=== PATIENT | male | born 1975 | race Caucasian/White ===

== ENCOUNTER 2016-08-24 09:14 | Emergency (ER) ==
[2016-08-24 09:18] VITALS: BP 130/89; TEMP 98.8; BMI 27.3
--- NOTE | 2016-08-24 09:42 | ED.PDOC ---
General ED Provider: Dr. MALATHI JOSHI JR Chief Complaint: Foot Pain/Injury Stated Complaint: HIT LEFT FOOT GOING THROUGH DOOR LAST NIGHT. PAIN TO BASE OF LEFT GREAT TOE [ End ]98.8 113 18 98% 130/89 4/10 was wearing socks pain immediate noted discoloration later unable to tolerate exam no definite bruising. , extra bone in left ankle removed asth migr. smok Time Seen by Physician: 09:41 Mode of Arrival: Walk-In Information Source: Patient Exam Limitations: No limitations Nursing and Triage Documentation Reviewed and Agree: No Review of Systems - Review Of Systems Constitutional: Reports: No symptoms Eyes: Reports: No symptoms Ears, Nose, Mouth, Throat: Reports: No symptoms Respiratory: Reports: No symptoms Cardiac: Reports: No symptoms GI: Reports: No symptoms : Reports: No symptoms Musculoskeletal: Reports: Joint pain Skin: Reports: Change in color. Denies: Bruising Neurological: Reports: No symptoms Endocrine: Reports: No symptoms Hematologic/Lymphatic: Reports: No symptoms All Other Systems: Other Past Medical History - Past Medical History Previously Healthy: No Endocrine: Reports: None Cardiovascular: Reports: None Respiratory: Reports: None Hematological: Reports: None Gastrointestinal: Reports: None Genitourinary: Reports: None Neuro/Psych: Reports: None Musculoskeletal: Reports: Joint Pain Cancer: Reports: None - Surgical History General Surgical History: Reports: Tonsillectomy - Family History Family History: Reports: None - Social History Smoking Status: Current every day smoker, Heavy tobacco smoker Hx Substance Use: No Alcohol Screening: Occasionally Physical Exam - Physical Exam Appearance: Well-appearing, No pain distress, Well-nourished Pain Distress: Moderate Neck: Supple Respiratory: Airway patent Musculoskeletal: Normal strength, ROM intact, No edema, No calf tenderness ( unable to tolerate exam) Skin: Warm, Dry, Cyanotic Neurological: Sensation intact, Motor intact, Reflexes intact, Cranial nerves intact, Alert, Oriented Psychiatric: Affect appropriate, Mood appropriate Critical Care Note - Critical Care Note Total Time (mins): 0 Course - Course Orders, Labs, Meds: Orders Category Date Time Status TOE(S), LEFT MIN 2V Stat RADS 08/24/16 09:41 Completed Vital Signs: Temp Pulse Resp BP Pulse Ox 08/24/16 09:14 98.8 F 113 H 18 130/89 98 Departure - Departure Time of Disposition: 10:36 Disposition: HOME SELF-CARE Discharge Problem: Injury of foot Instructions: Foot Contusion (ED) Condition: Good Pt referred to PMD for follow-up: Yes Additional Instructions: ice 20 minutes three times a day elevate foot 1-2 hours twice a day Naprosyn or Aleve for pain take with food limit weight on foot for three days Allergies/Adverse Reactions: Allergies codeine Adverse Reaction (Verified 08/24/16 09:18) Home Medications: Ambulatory Orders 1 [No Reported Medications] 03/05/15
--- NOTE | 2016-08-24 10:22 | DI ---
EXAM: Left great toe three views HISTORY: Injury, pain FINDINGS: Bone and joint structures appear normal. There is no displaced fracture or joint disloca tion seen. General bone density and soft tissues are within normal limits. IMPRESSION: No acute fracture identified.
== END 2016-08-24 10:54 | disposition home or self-care (01) ==
LOC: EDSEX → EDBD → ED 09:14 → MERGE 09:14 → ED 10:54
DX: S90.32XA Contusion of left foot, initial encounter (principal); W22.8XXA Striking against or struck by other objects, initial encounter; F17.210 Nicotine dependence, cigarettes, uncomplicated
CPT/HCPCS: 99282

== ENCOUNTER 2017-06-08 18:20 | Emergency (ER) | payer OTHER ==
[2017-06-08 18:26] VITALS: BP 143/96; TEMP 100.8; BMI 27.1
--- NOTE | 2017-06-08 18:30 | ED.PDOC ---
General ED Provider: Dr. KIMMIE LORENZO Chief Complaint: Cough Stated Complaint: COUGH Time Seen by Physician: 18:20 (SEEN WITH ROSITA HYDE ) Mode of Arrival: Walk-In Information Source: Patient Exam Limitations: No limitations Nursing and Triage Documentation Reviewed and Agree: Yes Reviewed sepsis parameters & appropriate labs ordered?: Yes System Inflammatory Response Syndrome: Not Applicable Sepsis Protocol: For patient's 13 years and over: Temp is 96.8 and below OR 101 and greater Pulse >90 BPM Resp >20/minute Acutely Altered Mental Status Are patient's symptoms suggestive of a new infection, such as: -Pneumonia -Skin, Soft Tissue -Endocarditis -UTI -Bone, Joint Infection -Implantable Device -Acute Abdominal Infection -Wound Infection -Meningitis -Blood Stream Catheter Infection -Unknown System Inflammatory Response Syndrome: Not Applicable Respiratory Complaint Exam - Respiratory Complaint/Exam Onset/Duration: 2 DAYS Symptoms Are: Still present Timing: Intermittent Initial Severity: Mild Current Severity: Mild Location: Throat, Chest Character: Reports: Non-productive cough, Dry cough Aggravating: Reports: None Alleviating: Reports: None Associated Signs and Symptoms: Reports: URI, Nasal congestion. Denies: Rapid breathing, Dyspnea, Fever, Chills, Chest pain, Pleuritic chest pain, Wheezing, Hemoptysis, Dizziness, Calf pain, Calf swelling, Edema, Hoarseness, Sinus discomfort, Vomiting, Sore throat, Weight loss, Decreased oral intake, Increased thirst, Increased appetite, Increased urination History of Healthcare-Acquired Pneumonia: No Related Surgical History: Reports: None Pulmonary Embolism Risk Factors: None Cardiac Risk Factors: Reports: None Pseudomonas Risk Factors: Reports: None Tuberculosis Risk Factors: Reports: None Status Asthmaticus Risk Factors: Reports: None Home Oxygen Use: No Recent Stress Test: No Recent Echo/LV Function: No Current Antibiotic Use: No Current Asthma Medication Use: No Respiratory Distress: None Inadequate Respiratory Effort: No Dysphagia Present: No Stridor Present: No JVD Present: No Accessory Muscle Use: No Retractions: Not Present Grunting Respirations: No Kussmaul Respirations: No Differential Diagnoses: Bronchitis, Influenza Review of Systems - Review Of Systems Constitutional: Reports: No symptoms Eyes: Reports: No symptoms Ears, Nose, Mouth, Throat: Reports: No symptoms Respiratory: Reports: Cough Cardiac: Reports: No symptoms GI: Reports: No symptoms : Reports: No symptoms Musculoskeletal: Reports: No symptoms Skin: Reports: No symptoms Neurological: Reports: No symptoms Endocrine: Reports: No symptoms Hematologic/Lymphatic: Reports: No symptoms All Other Systems: Reviewed and Negative Past Medical History - Past Medical History Previously Healthy: No Endocrine: Reports: None Cardiovascular: Reports: None Respiratory: Reports: None Hematological: Reports: None Gastrointestinal: Reports: None Genitourinary: Reports: None Neuro/Psych: Reports: None Musculoskeletal: Reports: Joint Pain Cancer: Reports: None Last Menstrual Period: may 17 - Surgical History General Surgical History: Reports: None - Family History Family History: Reports: None - Social History Smoking Status: Heavy tobacco smoker, Current every day smoker Hx Substance Use: No Alcohol Screening: Occasionally Physical Exam - Physical Exam Appearance: Well-appearing, No pain distress, Well-nourished Eyes: FREDERIC, EOMI, Conjunctiva clear ENT: Ears normal, Nose normal, Oropharynx normal Respiratory: Airway patent, Breath sounds clear, Breath sounds equal, Respirations nonlabored Cardiovascular: RRR, Pulses normal, No rub, No murmur GI/: Soft, Nontender, No masses, Bowel sounds normal, No Organomegaly Musculoskeletal: Normal strength, ROM intact, No edema, No calf tenderness Skin: Warm, Dry, Normal color Neurological: Sensation intact, Motor intact, Reflexes intact, Cranial nerves intact, Alert, Oriented Psychiatric: Affect appropriate, Mood appropriate Critical Care Note - Critical Care Note Total Time (mins): 0 Course - Course Vital Signs: Temp Pulse Resp BP Pulse Ox 06/08/17 18:20 100.8 F H 101 H 20 143/96 H 98 Departure - Departure Time of Disposition: 19:00 Disposition: HOME SELF-CARE Discharge Problem: Cough, Viral syndrome Acute bronchitis Qualifiers: Bronchitis organism: unspecified organism Qualified Code(s): J20.9 - Acute bronchitis, unspecified Instructions: Acute Bronchitis (ED) Condition: Good Pt referred to PMD for follow-up: Yes IPMP verified?: No Additional Instructions: Please call your Family Physician as soon as possible to schedule a follow-up appointment. Allergies/Adverse Reactions: Allergies codeine Adverse Reaction (Verified 06/08/17 18:28) Home Medications: Ambulatory Orders 1 [No Reported Medications] 03/05/15
== END 2017-06-08 18:43 | disposition home or self-care (01) ==
LOC: ED 18:20
DX: J20.9 Acute bronchitis, unspecified (principal); B34.9 Viral infection, unspecified
CPT/HCPCS: 99282

== ENCOUNTER 2018-01-20 21:27 | Emergency (ER) ==
[2018-01-20 21:34] VITALS: BP 137/91; TEMP 97.2; BMI 25.5
--- NOTE | 2018-01-20 21:53 | ED.PDOC ---
General ED Provider: Dr. KHUSHBU ORTEGA-ER Chief Complaint: Cough Stated Complaint: i get this every year--i have sinus congestion with cough and wheezing--no sob or wheezing or hemoptysis Time Seen by Physician: 21:51 Mode of Arrival: Walk-In Information Source: Patient Exam Limitations: No limitations Nursing and Triage Documentation Reviewed and Agree: Yes Does patient meet sepsis criteria?: No System Inflammatory Response Syndrome: Not Applicable Sepsis Protocol: For patient's 13 years and over: Temp is 96.8 and below OR 101 and greater Pulse >90 BPM Resp >20/minute Acutely Altered Mental Status Are patient's symptoms suggestive of a new infection, such as: -Pneumonia -Skin, Soft Tissue -Endocarditis -UTI -Bone, Joint Infection -Implantable Device -Acute Abdominal Infection -Wound Infection -Meningitis -Blood Stream Catheter Infection -Unknown Respiratory Complaint Exam - Respiratory Complaint/Exam Onset/Duration: 3 days Symptoms Are: Still present Initial Severity: Mild Current Severity: Moderate Location: Nose, Chest Character: Reports: Productive cough Aggravating: Reports: URI, Passive smoke exposure Associated Signs and Symptoms: Reports: Wheezing, URI, Nasal congestion, Sinus discomfort. Denies: Rapid breathing, Dyspnea, Fever, Chills, Chest pain, Pleuritic chest pain, Hemoptysis, Dizziness, Calf pain, Edema History of Healthcare-Acquired Pneumonia: No Home Oxygen Use: No Recent Stress Test: No Recent Echo/LV Function: No Current Antibiotic Use: No Current Asthma Medication Use: No Respiratory Distress: None Inadequate Respiratory Effort: No Dysphagia Present: No Stridor Present: No JVD Present: No Accessory Muscle Use: No Retractions: Not Present Diminished Breath Sounds: No Sinus Tenderness: None Grunting Respirations: No Kussmaul Respirations: No Differential Diagnoses: Asthma, Bronchitis, URI Review of Systems - Review Of Systems Constitutional: Reports: No symptoms Eyes: Reports: No symptoms Ears, Nose, Mouth, Throat: Reports: Nose discharge Respiratory: Reports: Cough Cardiac: Reports: No symptoms GI: Reports: No symptoms : Reports: No symptoms Musculoskeletal: Reports: No symptoms Skin: Reports: No symptoms Neurological: Reports: No symptoms Endocrine: Reports: No symptoms Hematologic/Lymphatic: Reports: No symptoms All Other Systems: Reviewed and Negative Past Medical History - Past Medical History Previously Healthy: No Endocrine: Reports: None Cardiovascular: Reports: None Respiratory: Reports: None Hematological: Reports: None Gastrointestinal: Reports: None Genitourinary: Reports: None Neuro/Psych: Reports: None Musculoskeletal: Reports: Joint Pain Cancer: Reports: None Last Menstrual Period: 01/05/18 - Surgical History General Surgical History: Reports: None - Family History Family History: Reports: None - Social History Smoking Status: Heavy tobacco smoker, Current every day smoker Hx Substance Use: No Alcohol Screening: None Lives: With family - Immunizations Tetanus Shot up to Date: (UNKNOWN) Physical Exam - Physical Exam Appearance: Well-appearing, No pain distress, Well-nourished Eyes: FREDERIC, EOMI, Conjunctiva clear ENT: Rhinorrhea Neck: Supple Respiratory: Wheezes Cardiovascular: RRR, Pulses normal, No rub, No murmur GI/: Soft, Nontender, No masses, Bowel sounds normal, No Organomegaly Musculoskeletal: Normal strength, ROM intact, No edema, No calf tenderness Skin: Warm, Dry, Normal color Neurological: Sensation intact, Motor intact, Reflexes intact, Cranial nerves intact, Alert, Oriented Psychiatric: Affect appropriate, Mood appropriate Critical Care Note - Critical Care Note Total Time (mins): 0 Course - Course Vital Signs: Temp Pulse Resp BP Pulse Ox 01/20/18 21:28 97.2 F L 97 H 24 137/91 H 99 Departure - Departure Time of Disposition: 21:53 Disposition: HOME SELF-CARE Discharge Problem: Asthmatic bronchitis Qualifiers: Asthma severity: mild Asthma persistence: intermittent Asthma complication type : with acute exacerbation Qualified Code(s): J45.21 - Mild intermittent asthma with (acute) exacerbation Instructions: Wheezing (ED) Condition: Good Pt referred to PMD for follow-up: No IPMP verified?: No Additional Instructions: biaxin 500mg bid x 10 days#20---prednisone 30mg x 2 days then 20mg x 3 days then 10mg x 2 days---albuterol inhaler 2 puffs qid --tussionex 1 tsp q 12hrs prn cough 100cc--stop smoking--f/u with pcp next week Allergies/Adverse Reactions: Allergies codeine Adverse Reaction (Verified 01/20/18 21:34) Vomiting Home Medications: Ambulatory Orders 1 [No Reported Medications] 01/20/18 Disposition Discussed With: Patient
== END 2018-01-20 22:02 | disposition home or self-care (01) ==
LOC: ED 21:27
DX: R05 Cough (principal); R06.2 Wheezing; R09.81 Nasal congestion; J06.9 Acute upper respiratory infection, unspecified; J45.21 Mild intermittent asthma with (acute) exacerbation
CPT/HCPCS: 99282

== ENCOUNTER 2018-02-12 17:11 | Emergency (ER) ==
[2018-02-12 17:15] VITALS: BP 150/95; TEMP 98.4; BMI 25.0
[2018-02-12] MEDS ORDERED: SODIUM CHLORIDE 1,000 ML IV STA (20:41)
[2018-02-12] MEDS ORDERED: TORADOL IVP STA (20:41)
[2018-02-12] MEDS ORDERED: ZOFRAN 4 MG/2 ML IVP STA (20:41)
--- NOTE | 2018-02-12 21:02 | ED.PDOC ---
General ED Provider: Dr. GUANAKITO LAMBERT Chief Complaint: Abdominal Pain Stated Complaint: Patient states that she has had right groin pain since this morning. Feels like prior Ovarian cyst on the left. Rates the pain at 7 Time Seen by Physician: 20:40 Mode of Arrival: Walk-In Information Source: Patient Exam Limitations: No limitations Nursing and Triage Documentation Reviewed and Agree: Yes Does patient meet sepsis criteria?: No System Inflammatory Response Syndrome: Not Applicable Sepsis Protocol: For patient's 13 years and over: Temp is 96.8 and below OR 101 and greater Pulse >90 BPM Resp >20/minute Acutely Altered Mental Status Are patient's symptoms suggestive of a new infection, such as: -Pneumonia -Skin, Soft Tissue -Endocarditis -UTI -Bone, Joint Infection -Implantable Device -Acute Abdominal Infection -Wound Infection -Meningitis -Blood Stream Catheter Infection -Unknown GI Complaint Exam - Abdominal Pain Complaint/Exam Onset: Sudden Duration: constant Symptoms Are: Still present Timing: Constant Initial Severity: Severe Current Severity: Moderate Location of Pain: RLQ Radiates To: Denies: Chest, Back, Flank, LLQ, RLQ, Inguinal Character: Reports: Aching, Throbbing Aggravating: Reports: Movement Alleviating: Reports: None Associated Signs and Symptoms: Denies: Vaginal discharge, Nausea, Vomiting AAA Risk Factors: Reports: None Cardiac Risk Factors: Reports: None Ectopic Risk Factors: Reports: None Ovarian Torsion Risk Factors: Reports: Ovarian cysts, Tubal ligation Surgical Obstruction Risk Factors: Reports: None Related Surgical History: Reports: Tubal ligation. Denies: Cholecystectomy, Appendectomy, AAA Repair, Gastric Bypass, Bowel Resection, Laparoscopy, Kidney Stones, CHERYL, BSO, Lysis of Adhesions Patient Rh Status: Unknown Abdominal Findings: Present: Other (mild tenderness to palpation right groin/ pelvic area. ) Differential Diagnoses: Appendicitis, Diverticulitis, Ureteral Stone, UTI, Ectopic , Ovarian Cyst Review of Systems - Review Of Systems Constitutional: Reports: No symptoms Eyes: Reports: No symptoms Ears, Nose, Mouth, Throat: Reports: No symptoms Respiratory: Reports: No symptoms Cardiac: Reports: No symptoms GI: Reports: Abdominal pain, Poor appetite : Reports: No symptoms Musculoskeletal: Reports: No symptoms Skin: Reports: No symptoms Neurological: Reports: No symptoms Endocrine: Reports: No symptoms Hematologic/Lymphatic: Reports: No symptoms All Other Systems: Reviewed and Negative Past Medical History - Past Medical History Previously Healthy: No Endocrine: Reports: None Cardiovascular: Reports: None Respiratory: Reports: Asthma Hematological: Reports: None Gastrointestinal: Reports: None Genitourinary: Reports: None Neuro/Psych: Reports: Migraine Musculoskeletal: Reports: Joint Pain Cancer: Reports: None Last Menstrual Period: 01/05/18 - Surgical History General Surgical History: Reports: Other (Ovarian cyst removal. ) - Family History Family History: Reports: None - Social History Smoking Status: Heavy tobacco smoker, Current every day smoker Hx Substance Use: No Alcohol Screening: None Physical Exam - Physical Exam Appearance: Ill-appearing, Well-nourished Ill-appearing: Moderate Pain Distress: Severe Eyes: FREDERIC, EOMI, Conjunctiva clear ENT: Oropharynx normal Neck: Supple Respiratory: Airway patent, Breath sounds clear, Breath sounds equal, Respirations nonlabored Cardiovascular: RRR, Pulses normal, No rub, No murmur GI/: Soft, No masses, Bowel sounds normal, No Organomegaly, Tender Musculoskeletal: Normal strength, ROM intact, No edema, No calf tenderness Skin: Warm, Dry, Normal color Neurological: Sensation intact, Motor intact, Alert, Oriented Psychiatric: Affect appropriate, Anxious Re-Evaluation - Re-Evaluation Time of Re-Evaluation: 21:55 Status: Improved Pain Level: 06/04 Critical Care Note - Critical Care Note Total Time (mins): 0 Course - Course Hematology/Chemistry: 02/12/18 20:50 02/12/18 20:50 Orders, Labs, Meds: Lab Review 02/12/18 02/12/18 02/12/18 20:50 20:50 20:50 WBC 9.47 RBC 4.44 Hgb 14.4 Hct 41.8 MCV 94.1 MCH 32.4 H MCHC 34.4 RDW Coeff of So 13.2 Plt Count 185 Immature Gran % (Auto) 0.3 Neut % (Auto) 53.2 Lymph % (Auto) 35.8 [place] % (Auto) 7.5 Eos % (Auto) 2.4 Baso % (Auto) 0.8 Immature Gran # (Auto) 0.0 Neut # (Auto) 5.0 Lymph # (Auto) 3.4 [place] # (Auto) 0.7 Eos # (Auto) 0.2 Baso # (Auto) 0.1 Sodium 136.5 L Potassium 3.92 Chloride 104.0 Carbon Dioxide 30.1 H Anion Gap 6.32 BUN 12.4 Creatinine 0.89 Estimated GFR (MDRD) 70.00 BUN/Creatinine Ratio 13.93 Glucose 92.4 Calcium 9.34 Total Bilirubin 0.41 AST 23.9 ALT 12.3 Alkaline Phosphatase 63.9 Total Protein 6.69 Albumin 4.13 Globulin 2.56 Albumin/Globulin Ratio 1.61 Amylase 57.9 Lipase 41.7 Serum , Qual Negative Urine Color Urine Clarity Urine pH Ur Specific [place] Urine Protein Urine Glucose (UA) Urine Ketones Urine Blood Urine Nitrite Urine Bilirubin Urine Urobilinogen Ur Leukocyte Esterase 02/12/18 21:20 WBC RBC Hgb Hct MCV MCH MCHC RDW Coeff of So Plt Count Immature Gran % (Auto) Neut % (Auto) Lymph % (Auto) [place] % (Auto) Eos % (Auto) Baso % (Auto) Immature Gran # (Auto) Neut # (Auto) Lymph # (Auto) [place] # (Auto) Eos # (Auto) Baso # (Auto) Sodium Potassium Chloride Carbon Dioxide Anion Gap BUN Creatinine Estimated GFR (MDRD) BUN/Creatinine Ratio Glucose Calcium Total Bilirubin AST ALT Alkaline Phosphatase Total Protein Albumin Globulin Albumin/Globulin Ratio Amylase Lipase Serum , Qual Urine Color Yellow Urine Clarity Clear Urine pH 6.0 Ur Specific [place] 1.025 Urine Protein Negative Urine Glucose (UA) Negative Urine Ketones Negative Urine Blood Negative Urine Nitrite Negative Urine Bilirubin Negative Urine Urobilinogen 1.0 Ur Leukocyte Esterase Negative Orders Category Date Time Status ED IV/MEDIPORT/POWERPORT .ONCE EMERGENCY 02/12/18 20:41 Active AMYLASE Stat LAB 02/12/18 20:50 Completed CBC W/ AUTO DIFF Stat LAB 02/12/18 20:50 Completed COMPREHENSIVE METABOLIC PANEL Stat LAB 02/12/18 20:50 Completed HCG QUALITATIVE [SERUM ] Stat LAB 02/12/18 20:50 Completed LIPASE Stat LAB 02/12/18 20:50 Completed URINALYSIS C & S IF INDICATED Stat LAB 02/12/18 21:20 Completed 0.9 % Sodium Chloride [Saline Flush] MEDS 02/12/18 20:41 Discontinued 1 syr IVF PRN PRN Ketorolac Tromethamine [Toradol] MEDS 02/12/18 20:41 Discontinued 30 mg IVP ONCE STA Ondansetron HCl/Pf [Zofran 4 mg/2 ml] MEDS 02/12/18 20:41 Discontinued 4 mg IVP ONCE STA Sodium Chloride 0.9% [Sodium Chloride] 1,000 ml MEDS 02/12/18 20:[address] ABD/PEL WO RENAL STONE PROT Stat RADS 02/12/18 20:41 Completed Medications Discontinued Medications Generic Name Dose Route Start Last Admin Trade Name Freq PRN Reason Stop Dose Admin Sodium Chloride 1,000 mls @ 1,000 mls/hr 02/12/18 20:41 02/12/18 21:15 Sodium Chloride IV 02/12/18 21:40 1,000 mls/hr BOLUS STA Administration Ketorolac Tromethamine 30 mg 02/12/18 20:41 02/12/18 21:18 Toradol IVP 02/12/18 20:42 30 mg ONCE STA Administration Ondansetron HCl 4 mg 02/12/18 20:41 02/12/18 21:17 Zofran 4 Mg/2 Ml IVP 02/12/18 20:42 4 mg ONCE STA Administration Sodium Chloride 1 syr 02/12/18 20:41 02/12/18 21:15 Saline Flush IVF 1 syr PRN PRN Administration To flush IV Vital Signs: Temp Pulse Resp BP Pulse Ox 02/12/18 17:11 98.4 F 96 H 18 150/95 H 98 Departure - Departure Time of Disposition: 21:55 Disposition: HOME SELF-CARE Discharge Problem: Abdominal pain Instructions: Acute Abdominal Pain (ED) Condition: Fair Pt referred to PMD for follow-up: Yes IPMP verified?: No Additional Instructions: Take medications as prescribed Follow up with PCP in 3 days Prescriptions: Dicyclomine HCl [Bentyl] 10 mg PO TID PRN #20 capsule PRN Reason: Abdominal Pain Ibuprofen [Motrin] 600 mg PO Q6H PRN #30 tablet PRN Reason: Analgesia Tramadol HCl [Ultram] 50 mg PO Q6H PRN #14 tablet PRN Reason: Severe Pain Allergies/Adverse Reactions: Allergies codeine Adverse Reaction (Verified 02/12/18 17:15) Vomiting Home Medications: Ambulatory Orders Dicyclomine HCl [Bentyl] 10 mg PO TID PRN #20 capsule 02/12/18 Ibuprofen [Motrin] 600 mg PO Q6H PRN #30 tablet 02/12/18 Tramadol HCl [Ultram] 50 mg PO Q6H PRN #14 tablet 02/12/18 Disposition Discussed With: Patient, Family
--- NOTE | 2018-02-12 21:18 | CT ---
EXAM: CT of the abdomen and pelvis without contrast. HISTORY: Right lower quadrant pain. PROCEDURE: Contiguous axial CT images of the abdomen and pelvis without contrast with coronal and sa gittal reformats. FINDINGS: The liver, gallbladder, pancreas, spleen, adrenal glands and kidneys are normal in appearan ce. The ureters are incompletely visualized. The abdominal aorta is within normal limits in diamete r. The visualized loops of bowel and appendix are normal in appearance. No free fluid or free air in the abdomen or pelvis. The bladder is adequately filled with no abnormality identified. The uterus i s unremarkable. The bones and soft tissues are unremarkable. Impression: Negative CT of the abdomen and pelvis as described.
== END 2018-02-12 22:10 | disposition home or self-care (01) ==
LOC: ED 17:11
DX: R10.31 Right lower quadrant pain (principal); F17.210 Nicotine dependence, cigarettes, uncomplicated
CPT/HCPCS: 36415; 74176; 80053; 81001; 82150; 83690; 84703; 85025; 96361; 96374; 96375; 99283

== ENCOUNTER 2018-06-15 21:10 | Emergency (ER) ==
[2018-06-15 21:21] VITALS: BP 134/88; TEMP 97.9; BMI 24.4
--- NOTE | 2018-06-15 22:09 | ED.PDOC ---
General ED Provider: Dr. KHUSHBU ORTEGA-ER Chief Complaint: Cough Stated Complaint: im coughing Time Seen by Physician: 21:15 Mode of Arrival: Walk-In Information Source: Patient Exam Limitations: No limitations Nursing and Triage Documentation Reviewed and Agree: Yes Does patient meet sepsis criteria?: No System Inflammatory Response Syndrome: Not Applicable Sepsis Protocol: For patient's 13 years and over: Temp is 96.8 and below OR 101 and greater Pulse >90 BPM Resp >20/minute Acutely Altered Mental Status Are patient's symptoms suggestive of a new infection, such as: -Pneumonia -Skin, Soft Tissue -Endocarditis -UTI -Bone, Joint Infection -Implantable Device -Acute Abdominal Infection -Wound Infection -Meningitis -Blood Stream Catheter Infection -Unknown Respiratory Complaint Exam - Respiratory Complaint/Exam Onset/Duration: 2 4hrs Symptoms Are: Still present Timing: Constant Initial Severity: Mild Current Severity: Mild Character: Reports: Productive cough Aggravating: Reports: URI Alleviating: Reports: None Associated Signs and Symptoms: Reports: URI, Nasal congestion, Hoarseness, Sore throat. Denies: Rapid breathing, Dyspnea, Fever, Chills, Chest pain, Pleuritic chest pain, Wheezing, Hemoptysis, Dizziness, Calf pain, Calf swelling, Edema Related History: Reports: Similar episode History of Healthcare-Acquired Pneumonia: No Home Oxygen Use: No Recent Stress Test: No Recent Echo/LV Function: No Current Antibiotic Use: No Current Asthma Medication Use: No Respiratory Distress: None Inadequate Respiratory Effort: No Dysphagia Present: No Stridor Present: No JVD Present: No Accessory Muscle Use: No Retractions: Not Present Diminished Breath Sounds: No Grunting Respirations: No Kussmaul Respirations: No Differential Diagnoses: Bronchitis, Sinusitis Review of Systems - Review Of Systems Constitutional: Reports: No symptoms Eyes: Reports: No symptoms Ears, Nose, Mouth, Throat: Reports: Nose discharge, Throat pain Respiratory: Reports: Cough Cardiac: Reports: No symptoms GI: Reports: No symptoms : Reports: No symptoms Musculoskeletal: Reports: No symptoms Skin: Reports: No symptoms Neurological: Reports: No symptoms Endocrine: Reports: No symptoms Hematologic/Lymphatic: Reports: No symptoms All Other Systems: Reviewed and Negative Past Medical History - Past Medical History Previously Healthy: No Endocrine: Reports: None Cardiovascular: Reports: None Respiratory: Reports: Asthma Hematological: Reports: None Gastrointestinal: Reports: None Genitourinary: Reports: None Neuro/Psych: Reports: Migraine Musculoskeletal: Reports: Joint Pain Cancer: Reports: None Last Menstrual Period: 4 days ago - Surgical History General Surgical History: Reports: Other (Ovarian cyst removal. ) - Family History Family History: Reports: None - Social History Smoking Status: Heavy tobacco smoker, Current every day smoker Hx Substance Use: No Alcohol Screening: Occasionally - Immunizations Tetanus Shot up to Date: Yes Physical Exam - Physical Exam Appearance: Well-appearing, No pain distress, Well-nourished Eyes: FREDERIC ENT: Rhinorrhea Neck: Supple Respiratory: Airway patent, Breath sounds clear, Breath sounds equal, Respirations nonlabored Cardiovascular: RRR GI/: Soft Musculoskeletal: Normal strength, ROM intact, No edema, No calf tenderness Skin: Warm, Dry, Normal color Neurological: Sensation intact, Motor intact, Reflexes intact, Cranial nerves intact, Alert, Oriented Psychiatric: Affect appropriate, Mood appropriate Critical Care Note - Critical Care Note Total Time (mins): 0 Course - Course Orders, Labs, Meds: Lab Review 06/15/18 21:31 Influ A Molecular Assay Negative by naat Influ B Molecular Assay Negative by naat Orders Category Date Time Status FLU A/B MOLECULAR Stat LAB 06/15/18 21:31 Completed MOLECULAR GROUP A STREP Stat LAB 06/15/18 21:31 Completed Vital Signs: Temp Pulse Resp BP Pulse Ox 06/15/18 21:13 97.9 F 94 H 20 134/88 98 Departure - Departure Time of Disposition: 22:09 Disposition: HOME SELF-CARE Discharge Problem: Bronchitis Rhinitis Qualifiers: Rhinitis type: acute Qualified Code(s): J00 - Acute nasopharyngitis [common cold] Instructions: Acute Bronchitis (ED) Condition: Good Pt referred to PMD for follow-up: Yes IPMP verified?: No Additional Instructions: zpack--fluids,,rest--recheck in 72hrs if not iproving Allergies/Adverse Reactions: Allergies codeine Adverse Reaction (Verified 06/15/18 21:21) Vomiting Home Medications: Ambulatory Orders Ibuprofen [Motrin] 600 mg PO Q6H PRN #30 tablet 02/12/18 Guaifenesin/Codeine Phosphate [Robitussin AC Syrup] 5 ml PO BID 06/15/18 Disposition Discussed With: Patient
== END 2018-06-15 22:15 | disposition home or self-care (01) ==
LOC: ED 21:10
DX: J40 Bronchitis, not specified as acute or chronic (principal); J00 Acute nasopharyngitis [common cold]; F17.210 Nicotine dependence, cigarettes, uncomplicated
CPT/HCPCS: 87502; 87651; 99283